=== PATIENT | male | born 1990 | race Caucasian/White ===

== ENCOUNTER 2017-01-04 08:18 | Emergency (ER) | payer SELFPAY ==
[~2017-01-04] VITALS: Ht 185.4 cm; Wt 95.3 kg
[2017-01-04 08:25] VITALS: BP 151/101
[2017-01-04] MEDS ORDERED: MUPI15CR TP (08:30)
[2017-01-04] MEDS ORDERED: SULF1TAB24 PO (08:30)
--- NOTE | 2017-01-04 08:30 | PHYS DOC ---
Adult General Chief Complaint Chief Complaint: ABSCESS HPI HPI Patient is a 26 year old Male who presents with an abscess on his posterior and neck for two days. Patient denies any fever. Denies any previous medical history. Review of Systems Review of Systems Constitutional: Denies fever or chills [] Eyes: Denies change in visual acuity, redness, or eye pain [] HENT: Denies nasal congestion or sore throat [] Respiratory: Denies cough or shortness of breath [] Cardiovascular: No additional information not addressed in HPI [] GI: Denies abdominal pain, nausea, vomiting, bloody stools or diarrhea [] : Denies dysuria or hematuria [] Musculoskeletal: Denies back pain or joint pain [] Integument: Abscess on posterior neck Neurologic: Denies headache, focal weakness or sensory changes [] Endocrine: Denies polyuria or polydipsia [] Physical Exam Physical Exam Constitutional: Well developed, well nourished, no acute distress, non-toxic appearance. [] HENT: Normocephalic, atraumatic, bilateral external ears normal, oropharynx moist, no oral exudates, nose normal. [] Neck: Normal range of motion, no tenderness, supple, no stridor. [] Abdomen: Bowel sounds normal, soft, no tenderness, no masses, no pulsatile masses. [] Skin: Posterior left cervical spine with an indurated area approximately 2 x 2 centimeter with mild cellulitis, the area is warm and tender to touch but not fluctuant. Back: No tenderness, no CVA tenderness. [] Extremities: No tenderness, no cyanosis, no clubbing, ROM intact, no edema. [] Neurologic: Alert and oriented X 3, normal motor function, normal sensory function, no focal deficits noted. [] Psychologic: Affect normal, judgement normal, mood normal. [] EKG EKG [] Radiology/Procedures Radiology/Procedures [] Course & Med Decision Making Course & Med Decision Making Pertinent Labs and Imaging studies reviewed. (See chart for details) Patient has an abscess and cellulitis to posterior cervical spine that is not ready to be drained. His tetanus is up-to-date. Discharged with Bactrim and Bactroban cream. Recommended warm compresses to the area. His blood pressure was 151/101, patient has no history of hypertension, he has no neurological cardiac symptoms in the ED. Recommended he follows up with the PCP for this. Provided a doctor's list. Provided return precautions and discharged in stable condition. Dragon Disclaimer Rubenon Disclaimer This electronic medical record was generated, in whole or in part, using a voice recognition dictation system. Departure Departure Impression: Primary Impression: Abscess or cellulitis, neck Additional Impression: High blood pressure Disposition: HOME, SELF-CARE Condition: STABLE Patient Instructions: Abscess, Cellulitis, Hypertension Additional Instructions: You seen for an abscess of the posterior neck. Please take the antibiotics prescribed until completed. Apply warm compresses to the affected area twice a day. Follow-up with your own doctor or the provided doctor in the next 1 week. Your blood pressure was 151/101. This is high. Consider following up with a primary care doctor to have it rechecked. Scripts Mupirocin Calcium (BACTROBAN CREAM) 15 Gm Cream..g. 1 GERALD TP TID, #30 GM Prov: JULIAN OLIVARES APRN 01/04/17 Sulfamethoxazole/Trimethoprim (BACTRIM DS TABLET) 1 Each Tablet 1 TAB PO BID, #20 TAB Prov: JULIAN OLIVARES APRN 01/04/17 Problem Qualifiers Additional Impression: High blood pressure Hypertension type: unspecified secondary hypertension Qualified Codes: I15.9 - Secondary hypertension, unspecified JULIAN OLIVARES APRN Jan 04, 2017 08:30
== END 2017-01-04 08:45 | disposition home or self-care (01) ==
LOC: ER 08:18
DX: L03.221 Cellulitis of neck (principal); R03.0 Elevated blood-pressure reading, without diagnosis of hypertension
CPT/HCPCS: 99283

== ENCOUNTER 2020-07-22 09:01 | Emergency (ER) | payer OTHER ==
[~2020-07-22] VITALS: Ht 185.4 cm; Wt 235.0 kg
[~2020-07-22 09:01] MED LIST: MUPI15CR TP; SULF1TAB24 PO
[2020-07-22 09:41] VITALS: BP 163/96
[2020-07-22] MEDS ORDERED: cefTRIAXone IM 250 MG VIAL IM ONE (10:00)
[2020-07-22] MEDS ORDERED: metroNIDAZOLE 500 MG TABLET PO ONE (10:00)
--- NOTE | 2020-07-22 10:07 | PHYS DOC ---
Past Medical History Past Medical History: No Pertinent History, Other Additional Past Medical Histor: PSORIASIS Past Surgical History: No Surgical History Smoking Status: Current Every Day Smoker Alcohol Use: None Drug Use: None General Adult EDM: Chief Complaint: PENIS PROBLEM HPI: HPI: Patient is a 30 year old male who presents to the ED today complaining of penile discharge for 3 days. Also complaining of dysuria. Review of Systems: Review of Systems: Constitutional: Denies fever or chills. [] : Reports penile discharge for 3 days and dysuria Musculoskeletal: Denies back pain or joint pain. [] Integument: Denies rash. [] Neurologic: Denies headache, focal weakness or sensory changes. [] Psychiatric: Denies depression or anxiety. [] Heart Score: Risk Factors: Risk Factors: DM, Current or recent (<one month) smoker, HTN, HLP, family histo ry of CAD, obesity. Risk Scores: Score 0 - 3: 2.5% MACE over next 6 weeks - Discharge Home Score 4 - 6: 20.3% MACE over next 6 weeks - Admit for Clinical Observation Score 7 - 10: 72.7% MACE over next 6 weeks - Early Invasive Strategies Current Medications: Current Medications Medications (Trade) Dose Ordered Sig/Brynn Start Time Stop Time Status Last Admin Dose Admin Ceftriaxone Sodium (Rocephin Im) 500 mg 1X ONCE 07/22/20 10:00 07/22/20 10:01 DC Metronidazole (Flagyl) 2,000 mg 1X ONCE 07/22/20 10:00 07/22/20 10:01 DC Allergies: Allergies: Allergies Coded Allergies Type Severity Reaction Last Updated Verified No Known Drug Allergies 01/04/17 No Physical Exam: PE: Constitutional: Well developed, well nourished, no acute distress, non-toxic appearance. [] Abdomen: Bowel sounds normal, soft, no tenderness, no masses, no pulsatile masses. [] Skin: Warm, dry, no erythema, no rash. [] Back: No tenderness, no CVA tenderness. [] Extremities: No tenderness, no cyanosis, no clubbing, ROM intact, no edema. [] Neurologic: Alert and oriented X 3, normal motor function, normal sensory function, no focal deficits noted. [] Psychologic: Affect normal, judgement normal, mood normal. [] Current Patient Data: Vital Signs: Vital Signs Date Time Temp Pulse Resp B/P (MAP) Pulse Ox O2 Delivery O2 Flow Rate FiO2 07/22/20 09:41 97.8 96 14 163/96 (118) 97 Room Air 97.8 EKG: EKG: [] Radiology/Procedures: Radiology/Procedures: [] Course & Med Decision Making: Course & Med Decision Making Pertinent Labs and Imaging studies reviewed. (See chart for details) This is a 30-year-old male patient presented to the ED today with penile discharge for 3 days. Was treated for STDs in the ED and d/c on doxycycline. Education provided. Follow-up with PCP or health department as needed Dragon Disclaimer: Dragon Disclaimer: This electronic medical record was generated, in whole or in part, using a voice recognition dictation system. Departure Departure Impression: Primary Impression: Concern about STD in male without diagnosis Disposition: 01 DC HOME SELF CARE/HOMELESS Condition: STABLE Referrals: UNKNOWN PCP NAME (PCP) follow up in one week Patient Instructions: Sexually Transmitted Disease Additional Instructions: You were treated for sexually transmitted diseases. We will call you in the course of this week if your test becomes positive. Do not have any sexual intercourse for a week. Use protection at all times. Scripts Doxycycline Hyclate (DOXYCYCLINE HYCLATE) 100 Mg Tablet 1 TAB PO BID, #14 TAB Prov: JULIAN OLIVARES APRN 07/22/20 JULIAN OLIVARES APRN Jul 22, 2020 10:07
[2020-07-22] MEDS ORDERED: DOXY100T PO (10:12)
[2020-07-22 10:32] LABS: BILIRUBIN,URINE NEGATIVE (NEG); CLARITY,URINE CLEAR; COLOR,URINE YELLOW; NITRITE,URINE NEGATIVE (NEG); PH,URINE 6.5 (<5.0-8.0); PROTEIN,URINE NEGATIVE (NEG-TRACE); UROBILINOGEN,URINE 0.2 mg/dL (0.2 mg/dL)
[2020-07-22 11:11] LABS: RBC,URINE OCC /HPF (0-2)
[2020-07-22 11:12] LABS: BACTERIA,URINE 0 /HPF (0-FEW); WBC,URINE 0 /HPF (0-4)
== END 2020-07-22 10:22 | disposition home or self-care (01) ==
LOC: ER 09:01
DX: N48.89 Other specified disorders of penis (principal); R30.0 Dysuria; F17.200 Nicotine dependence, unspecified, uncomplicated; Z20.2 Contact with and (suspected) exposure to infections with a predominantly sexual mode of transmission
CPT/HCPCS: 81001; 87491; 87591; 96372; 99283; J0696